=== PATIENT | male | born 1970 | race Caucasian/White ===

== ENCOUNTER 2017-09-05 21:56 | Emergency (ER) | payer BC ==
[~2017-09-05] VITALS: Ht 177.8 cm; Wt 83.9 kg
[2017-09-05] MEDS ORDERED: POTASSIUM CHLO10 MEQ PO (22:10)
== END 2017-09-05 22:33 | disposition home or self-care (01) ==
LOC: ED 21:56
DX: S50.02XA Contusion of left elbow, initial encounter (principal); F17.200 Nicotine dependence, unspecified, uncomplicated; Z88.5 Allergy status to narcotic agent; Z79.899 Other long term (current) drug therapy; V19.9XXA Pedal cyclist (driver) (passenger) injured in unspecified traffic accident, initial encounter
CPT/HCPCS: 73080; 99283

== ENCOUNTER 2018-01-11 19:53 | Emergency (ER) | payer BC ==
[~2018-01-11] VITALS: Ht 177.8 cm; Wt 83.9 kg
[~2018-01-11 19:53] MED LIST: POTASSIUM CHLO10 MEQ PO
== END 2018-01-11 22:05 | disposition home or self-care (01) ==
LOC: ED 19:53
PROC: 0M940ZZ Drainage of Left Elbow Bursa and Ligament, Open Approach (ICD-10-PCS; principal; 2018-01-11)
DX: M71.122 Other infective bursitis, left elbow (principal); F17.200 Nicotine dependence, unspecified, uncomplicated; Z88.5 Allergy status to narcotic agent
CPT/HCPCS: 23931; 87070; 87077; 87186; 87205; 99282

== ENCOUNTER 2018-07-18 14:15 | Emergency (ER) | payer OTHER ==
[~2018-07-18] VITALS: Ht 177.8 cm; Wt 83.9 kg
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
== END 2018-07-18 15:26 | disposition home or self-care (01) ==
LOC: ED 14:15
DX: S51.811A Laceration without foreign body of right forearm, initial encounter (principal); V00.131A Fall from skateboard, initial encounter